=== PATIENT | male | born 1940 | race Caucasian/White ===

== ENCOUNTER 2017-12-01 07:42 | Emergency (ER) | payer MEDICARE, OTHER ==
--- NOTE | 2017-12-01 08:02 | EDM.PDOC ---
ED HPI GENERAL MEDICAL PROBLEM - General Chief Complaint: Neurological Problem Stated Complaint: Dizziness/Nausea/Weakness Time Seen by Provider: 12/01/17 07:45 Source of Information: Reports: Patient, EMS History Limitations: Reports: No Limitations - History of Present Illness INITIAL COMMENTS - FREE TEXT/NARRATIVE: 77 YO WM presents to ER by EMS after episode of dizziness with left sided headache. Pt reports he was getting out of bed this am around 6:30 when he became dizzy and felt like the room was spinning. Pt states that he had a mild left sided headache which occurred at the same time. Pt reports he laid back down which improved his symptoms. Pt reports he had his help him to the bathroom where he became nauseated and had "dry heaves". Pt reports symptoms are positional. Pt denies any motor deficits, or numbness/tingling. Pt states he feels generally weak, but he no longer has a headache or feels dizzy. Pt denies fever/chills, chest pain, shortness of breath, no tinnitus, no hearing loss, no recent URI. Pt reports symptoms resolved after paramedics arrived to his home. Onset: Today Onset Date: 12/01/17 Onset Time: 06:30 Location: Reports: Head, Generalized Quality: Reports: Ache Severity: Mild Improves with: Reports: None Worsens with: Reports: None Associated Symptoms: Reports: Headaches, Nausea/Vomiting, Weakness. Denies: Confusion, Chest Pain, Cough, cough w sputum, Fever/Chills, Loss of Appetite, Rash, Seizure, Shortness of Breath, Syncope - Related Data Allergies Allergy/AdvReac Type Severity Reaction Status Date / Time amoxicillin Allergy Rash Verified 12/01/17 08:18 Home Meds: Home Meds Aspirin [Children's Aspirin] 81 mg PO DAILY 07/01/14 [History] Cholecalciferol (Vitamin D3) [Vitamin D3] 1,000 units PO BID 07/01/14 [History] Fish Oil/[place]-3 Fatty Acids [Fish Oil 1,000 MG] 1 gm PO 1200 07/01/14 [History] Fish Oil/[place]-3 Fatty Acids [Fish Oil 1,000 MG] 1 gm PO DAILY 07/01/14 [History ] Glucosamine Sulf/Chondroitin A [Glucosamine-Chondroitin Cap] 1 cap PO BID [History] Naproxen Sodium [Aleve] 220 mg PO DAILY 07/01/14 [History] Vitamin B Complex 1 cap PO DAILY 07/01/14 [History] buPROPion [Wellbutrin XL] 300 mg PO QAM 07/01/14 [History] Nitroglycerin [Nitrostat] 0.4 mg SL Q5M PRN #24 tab.sl 07/02/14 [Rx] Fluticasone Propionate [Flonase Allergy Relief] 2 spray NASBOTH DAILY 12/01/17 [ History] Ibuprofen/Pseudoephedrine HCl [Advil Cold-Sinus Liqui-Gels] 1 cap PO DAILY 12/01 [History] Melatonin 1 mg PO BEDTIME PRN 12/01/17 [History] Multivitamin [Multi-Vitamin Daily] 1 tab PO DAILY 12/01/17 [History] Sennosides/Docusate Sodium [Stool Softener Tablet] 1 tab PO DAILY PRN 12/01/17 [ History] Social & Family History - Living Situation & Occupation Living situation: Reports: Occupation: Retired ED ROS GENERAL - Review of Systems Review Of Systems: See Below Constitutional: Reports: Weakness. Denies: Fever, Chills, Diaphoresis HEENT: Reports: Vertigo. Denies: Vision Change Respiratory: Reports: No Symptoms Cardiovascular: Reports: No Symptoms Endocrine: Reports: No Symptoms GI/Abdominal: Reports: Nausea : Reports: Frequency, Urgency Musculoskeletal: Reports: No Symptoms Skin: Reports: No Symptoms Neurological: Reports: Dizziness, Headache, Weakness. Denies: Confusion, Numbness, Paresthesia, Pre-Existing Deficit, Seizure, Syncope, Trouble Speaking , Difficulty Walking, Change in Speech, Gait Disturbance Psychiatric: Reports: No Symptoms Hematologic/Lymphatic: Reports: No Symptoms Immunologic: Reports: No Symptoms ED EXAM, GI/ABD - Physical Exam Exam: See Below Exam Limited By: No Limitations General Appearance: Alert, WD/WN, No Apparent Distress Eyes: Bilateral: EOMI Ears: Normal External Exam, Normal Canal, Hearing Grossly Normal, Normal TMs Nose: Normal Inspection, Normal Mucosa, No Blood Throat/Mouth: Normal Inspection, Normal Lips, Normal Teeth, Normal Gums, Normal Oropharynx, Normal Voice, No Airway Compromise Head: Atraumatic, Normocephalic Neck: Normal Inspection, Supple, Non-Tender, Full Range of Motion Respiratory/Chest: No Respiratory Distress, Lungs Clear, Normal Breath Sounds, No Accessory Muscle Use, Chest Non-Tender Cardiovascular: Normal Peripheral Pulses, Regular Rate, Rhythm, No Edema, No Gallop, No JVD, No Murmur, No Rub GI/Abdominal Exam: Normal Bowel Sounds, Soft, Non-Tender, No Organomegaly, No Distention, No Abnormal Bruit, No Mass, Pelvis Stable Back Exam: Normal Inspection, Full Range of Motion, NT Extremities: Normal Inspection, Normal Range of Motion, Non-Tender, Normal Capillary Refill, No Pedal Edema Neurological: Alert, Oriented, CN II-XII Intact, Normal Cognition, Normal Gait, Normal Reflexes, No Motor/Sensory Deficits Psychiatric: Normal Affect, Normal Mood Skin Exam: Warm, Dry, Intact, Normal Color, No Rash Lymphatic: No Adenopathy EKG INTERPRETATION EKG Date: 12/01/17 Time: 08:27 Rhythm: NSR Rate (Beats/Min): 67 [place]: LAD-Left [place] Deviation P-Wave: Present ST-T: Normal QT: Normal Comparison: NA - No Prior EKG Course - Vital Signs Last Recorded V/S: Last Vital Signs Temp 36.4 C 12/01/17 08:46 Pulse 72 12/01/17 08:46 Resp 20 12/01/17 08:46 BP 143/71 H 12/01/17 08:46 Pulse Ox 99 12/01/17 08:46 - Orders/Labs/Meds Orders: Active Orders 24 hr Category Date Time Status EKG Documentation Completion [RC] ASDIRECTED Care 12/01/17 07:53 Active Orthostatic Vital Signs [RC] ASDIRECTED Care 12/01/17 08:02 Active Chest 1V Frontal [CR] Stat Exams 12/01/17 07:52 Ordered Head wo Cont [CT] Stat Exams 12/01/17 08:02 Ordered UA W/MICROSCOPIC [URIN] Stat Lab 12/01/17 08:22 Ordered Sodium Chloride 0.9% [Normal Saline] 500 ml Med 12/01/17 08:15 Active IV .BOLUS Medication Orders Sodium Chloride (Normal Saline) 500 mls @ 500 mls/hr IV .BOLUS TYREE Labs: Laboratory Tests 12/01/17 12/01/17 12/01/17 Range/Units 08:10 08:10 08:22 WBC 5.2 (5.0-10.0) 10^3/uL RBC 4.45 L (4.50-6.00) 10^6/uL Hgb 14.8 (13.0-17.0) g/dL Hct 45.1 (40.0-52.0) % MCV 101.3 H (82.0-92.0) fL MCH 33.3 H (27.0-31.0) pg MCHC 32.9 (32.0-36.0) g/dL RDW 13.6 (11.5-14.5) % Plt Count 236 (150-300) 10^3/uL MPV 6.9 L (7.4-10.4) fL Neut % (Auto) 57.5 (50.0-70.0) % Lymph % (Auto) 25.4 (20.0-40.0) % [place] % (Auto) 11.6 H (2.0-8.0) % Eos % (Auto) 4.4 H (1.0-3.0) % Baso % (Auto) 1.1 H (0.0-1.0) % Neut # (Auto) 3.0 (2.5-7.0) 10^3/uL Lymph # (Auto) 1.3 (1.0-4.0) 10^3/uL [place] # (Auto) 0.6 (0.1-0.8) 10^3/uL Eos # (Auto) 0.2 (0.1-0.3) 10^3/uL Baso # (Auto) 0.1 (0.0-0.1) 10^3/uL Sodium 139 (136-145) mmol/L Potassium 4.0 (3.3-5.3) mmol/L Chloride 103 (98-115) mmol/L Carbon Dioxide 24.9 (21.0-32.0) mmol/L BUN 20 (6-25) mg/dL Creatinine 0.93 (0.51-1.17) mg/dL Est Cr Clr Drug Dosing TNP Estimated GFR (MDRD) > 60 mL/min Glucose 97 (70-110) mg/dL Calcium 8.7 (8.7-10.3) mg/dL Total Bilirubin 0.5 (0.2-1.0) mg/dL AST 22 (15-37) U/L ALT 30 (12-78) U/L Alkaline Phosphatase 77 (46-116) IU/L Creatine Kinase 84 (26-276) U/L CK-MB (CK-2) 1.90 (0.00-4.30) ng/mL Troponin I < 0.04 (0.00-0.070) ng/mL Total Protein 6.4 (6.4-8.2) g/dL Albumin 3.47 (3.00-4.80) g/dL Lipase 62 L (73-393) U/L Specimen Type Urinvoid Urine Color Yellow (YELLOW) Urine Appearance Clear (CLEAR) Urine pH 7.5 (5.0-9.0) Ur Specific [place] 1.020 (1.005-1.030) Urine Protein Negative (NEGATIVE) mg/dL Urine Glucose (UA) Negative (NEGATIVE) mg/dL Urine Ketones Trace H (NEGATIVE) mg/dL Urine Occult Blood Negative (NEGATIVE) Urine Nitrite Negative (NEGATIVE) Urine Bilirubin Negative (NEGATIVE) Urine Urobilinogen 0.2 (0.2-1.0) E.U./dL Ur Leukocyte Esterase Negative (NEGATIVE) Urine RBC 0-5 /HPF Urine WBC 0-5 /HPF Ur Epithelial Cells Rare /LPF Urine Bacteria Not seen (NONE TO FEW) /HPF Meds: Medications Generic Name Dose Route Start Last Admin Trade Name Freq PRN Reason Stop Dose Admin Sodium Chloride 500 mls @ 500 mls/hr 12/01/17 08:15 Normal Saline IV .BOLUS TYREE - Radiology Interpretation Free Text/Narrative:: CXR- Questionable right perihilar infiltrate CT Head- NAD - Re-Assessments/Exams Free Text/Narrative Re-Assessment/Exam: 12/01/17 09:05 Dizziness/vertigo resolved- asymptomatic while in ER. Pt able to ambulate without difficulty. Orthostatic vital signs were normal on exam. Pt states he doesn't like taking medication and doesn't want medication for dizziness or nausea to go home with. Pt was instructed to follow up with PCP this week. Pt was instructed to get up from lying or seated position slowly. 12/01/17 09:16 Discussed xray findings with pt and - Pt was diagnosed with pneumonia 4 weeks ago on right side-took antibiotics. Pt denies any fever, shortness of breath or chest/back pain. Pt was instructed to discuss findings with PCP for possible CT chest for further evaluation Departure - Departure Time of Disposition: :18 Disposition: Home, Self-Care 01 Clinical Impression: Dizziness, Vertigo - Discharge Information Instructions: Dizziness, Vertigo Referrals: PCP,Not In Area [Primary Care Provider] - Forms: ED Department Discharge Additional Instructions: 1. Discharge home 2. follow up with PCP this week for recheck and further evaluation as needed 3. suggested antivert/zofran but patient refused 4. Return to ER for worsening symptoms 5. Discuss CXR findings with PCP and consider CT Chest for further evaluation - My Orders Last 24 Hours: My Active Orders 12/01/17 07:52 Chest 1V Frontal [CR] Stat 12/01/17 07:53 EKG Documentation Completion [RC] ASDIRECTED 12/01/17 08:02 Orthostatic Vital Signs [RC] ASDIRECTED Head wo Cont [CT] Stat 12/01/17 08:15 Sodium Chloride 0.9% [Normal Saline] 500 ml IV .BOLUS 12/01/17 08:22 UA W/MICROSCOPIC [URIN] Stat - Assessment/Plan Last 24 Hours: My Active Orders 12/01/17 07:52 Chest 1V Frontal [CR] Stat 12/01/17 07:53 EKG Documentation Completion [RC] ASDIRECTED 12/01/17 08:02 Orthostatic Vital Signs [RC] ASDIRECTED Head wo Cont [CT] Stat 12/01/17 08:15 Sodium Chloride 0.9% [Normal Saline] 500 ml IV .BOLUS 12/01/17 08:22 UA W/MICROSCOPIC [URIN] Stat Assessment:: 1. Dizziness- resolved 2. possible vertigo but asymptomatic on exam Plan: 1. Discharge home 2. follow up with PCP this week for recheck and further evaluation as needed 3. suggested antivert/zofran but patient refused 4. Return to ER for worsening symptoms 5. Discuss CXR findings with PCP and consider CT chest
[2017-12-01] MEDS ORDERED: Sodium Chloride 0.9% 500 ML IV SCH (08:15)
[2017-12-01 08:45] LABS: CHLORIDE,CL 103 mmol/L (98-115); SODIUM,NA 139 mmol/L (136-145)
[2017-12-01 08:50] VITALS: BP 143/71
== END 2017-12-01 09:46 | disposition home or self-care (01) ==
LOC: KA.ED 07:42
DX: R42 Dizziness and giddiness (principal); Z88.1 Allergy status to other antibiotic agents; Z79.899 Other long term (current) drug therapy; Z79.82 Long term (current) use of aspirin
CPT/HCPCS: 36415; 70450; 71045; 80053; 81001; 82550; 82553; 83690; 84484; 85025; 93005; 96360; 99285; J7040; 99284